=== PATIENT | female | born 1960 | race Caucasian/White ===

== ENCOUNTER 2018-11-04 21:19 | Emergency (ER) | payer OTHER ==
[~2018-11-04] VITALS: Ht 177.8 cm; Wt 57.6 kg
[2018-11-04] MEDS ORDERED: diphenhdrAMINE HCL 50 MG/1 ML VL ONE (21:27)
[2018-11-04] MEDS ORDERED: methylPREDNISolone SOD SUCC 125 MG/2 ML VL ONE (21:27)
[2018-11-04] MEDS ORDERED: methylPREDNISolone SOD SUCC 125 MG/2 ML VL IV ONE (21:30)
[2018-11-04] MEDS ORDERED: IPRATROPIUM BROM 0.5 MG/2.5ML INH SOL NEB ONE (21:30)
[2018-11-04] MEDS ORDERED: diphenhdrAMINE HCL 50 MG/1 ML VL IV ONE (21:30)
[2018-11-04] MEDS ORDERED: ALBUTEROL SULF 2.5 MG/0.5ML(0.5%) NEB SOLN NEB ONE (21:30)
[2018-11-04 22:20] LABS: Basophils # (auto) 0.1 uL; Basophils % (auto) 1.3 % (0.0-2.0); Eosinophils # (auto) 0.3 uL; Eosinophils % (auto) 3.9 % (0.0-7.0); Hematocrit 41.4 % (36.0-46.0); Lymphocytes # (auto) 3.2 uL; Lymphocytes % (auto) 36.9 % (10.0-50.0); Mean Corpuscular Hemoglobin 32.4 pg (28.0-32.0); Mean Corpuscular Hgb Conc. 33.8 g/dL (32.0-36.0); Mean Corpuscular Volume 96.1 fL (80.0-100.0); Monocytes # (auto) 0.8 uL; Monocytes % (auto) 9.8 % (0.0-12.0); Neutrophils # (auto) 4.2 uL; Neutrophils % (auto) 48.1 % (37.0-80.0); Nucleated Red Blood Cells % 0.1 %; Platelet Count (auto) 247 10^3/uL (140-450); Red Blood Cells 4.31 10^6/uL (4.0-5.20); Red Cell Distribution Width 13.8 % (11.8-14.3); White Blood Cell 8.7 10^3/uL (4.4-10.8)
[2018-11-04 22:41] LABS: Albumin 3.3 g/dL (3.4-5.0); Anion Gap 10 (5-15); Blood Urea Nitrogen 19 mg/dL (7-18); Carbon Dioxide 21 mmol/L (21-32); Chloride 107 mmol/L (98-107); Glucose 110 mg/dL (74-106); Potassium 3.9 mmol/L (3.5-5.1); Sodium 138 mmol/L (136-145)
[2018-11-04 22:46] LABS: Alkaline Phosphatase 84 U/L (45-117); Aspartate Aminotransferase 26 U/L (15-37); BUN/Creatinine Ratio 27.5; GFR African American 112 mL/min; GFR Non-African American 93 mL/min
[2018-11-04 22:47] LABS: Alanine Aminotransferase 37 U/L (13-56); Bilirubin, Total 0.2 mg/dL (0.2-1.0); Total Protein 6.4 g/dL (6.4-8.2)
[2018-11-04 23:30] VITALS: BP 120/88
== END 2018-11-04 23:46 | disposition home or self-care (01) ==
LOC: ER 21:19
DX: T78.40XA Allergy, unspecified, initial encounter (principal); L29.9 Pruritus, unspecified; Z88.6 Allergy status to analgesic agent; X58.XXXA Exposure to other specified factors, initial encounter
CPT/HCPCS: 36415; 80053; 84484; 85025; 94640; 96374; 96375; 99283; J1200; J2930; J7611; J7644

== ENCOUNTER 2019-01-20 15:51 | Inpatient (IN) | payer OTHER ==
[~2019-01-20] VITALS: Ht 172.7 cm; Wt 60.0 kg
[2019-01-20] MEDS ORDERED: ALBUTEROL SULF 2.5 MG/0.5ML(0.5%) NEB SOLN NEB ONE ×2 (17:00→17:15)
[2019-01-20] MEDS ORDERED: IPRATROPIUM BROM 0.5 MG/2.5ML INH SOL NEB ONE ×2 (17:00→17:15)
[2019-01-20] MEDS ORDERED: methylPREDNISolone SOD SUCC 125 MG/2 ML VL ONE (17:04)
[2019-01-20] MEDS ORDERED: methylPREDNISolone SOD SUCC 125 MG/2 ML VL IV ONE (17:15)
[2019-01-20] MEDS ORDERED: cefTRIAXone 1GM/50ML D5W 50 ML IV ONE (17:15)
[2019-01-20 17:30] LABS: Basophils # (auto) 0 uL; Basophils % (auto) 0.5 % (0.0-2.0); Eosinophils # (auto) 0 uL; Eosinophils % (auto) 0.2 % (0.0-7.0); Hemoglobin 13.1 g/dL (12.2-16.2); Lymphocytes # (auto) 0.4 uL; Lymphocytes % (auto) 8.8 % (10.0-50.0); Mean Corpuscular Hemoglobin 31.6 pg (28.0-32.0); Mean Corpuscular Hgb Conc. 33.6 g/dL (32.0-36.0); Mean Corpuscular Volume 94.1 fL (80.0-100.0); Monocytes # (auto) 0.5 uL; Neutrophils # (auto) 3.2 uL; Neutrophils % (auto) 77.5 % (37.0-80.0); Nucleated Red Blood Cells % 0.5 %; Platelet Count (auto) 195 10^3/uL (140-450); Red Blood Cells 4.14 10^6/uL (4.0-5.20); Red Cell Distribution Width 13.7 % (11.8-14.3); White Blood Cell 4.1 10^3/uL (4.4-10.8)
[2019-01-20 17:39] LABS: Alanine Aminotransferase 61 U/L (13-56); Albumin 3.5 g/dL (3.4-5.0); Anion Gap 8 (5-15); Calcium 8.7 mg/dL (8.5-10.1); Carbon Dioxide 24 mmol/L (21-32); Chloride 100 mmol/L (98-107); Glucose 107 mg/dL (74-106); Potassium 3.5 mmol/L (3.5-5.1); Sodium 132 mmol/L (136-145)
[2019-01-20 17:42] LABS: Alkaline Phosphatase 82 U/L (45-117); Aspartate Aminotransferase 43 U/L (15-37); BUN/Creatinine Ratio 16.4; Bilirubin, Total 0.3 mg/dL (0.2-1.0); Blood Urea Nitrogen 11 mg/dL (7-18); GFR African American 115 mL/min; GFR Non-African American 95 mL/min; Total Protein 7.1 g/dL (6.4-8.2)
[2019-01-20 19:35] LABS: Lactic Acid w/Reflex 3.2 mmol/L (0.4-2.0)
[2019-01-20] MEDS ORDERED: ONDANSETRON HCL 4 MG/2 ML VIAL IV PRN (21:15)
[2019-01-20] MEDS ORDERED: NITROGLYCERIN 0.4 MG SL TAB SL PRN (21:15)
[2019-01-20] MEDS ORDERED: SODIUM CHLORIDE 0.9% 1,000 ML IV ONE (21:15)
[2019-01-20] MEDS ORDERED: MORPHINE SULF INJ 2 MG/ML SYRINGE 1ML IV PRN (21:15)
[2019-01-20] MEDS ORDERED: HYDROcodone-ACET 5/325MG TAB PO PRN (21:15)
[2019-01-20] MEDS ORDERED: cloNIDine HCL 0.1 MG TAB PO PRN (21:15)
[2019-01-20] MEDS ORDERED: LEVOFLOXACIN 500MG 100 ML IV ONE (21:15)
[2019-01-20 22:00] VITALS: BP 160/89
[2019-01-20] MEDS: FAMOTIDINE 20 MG TAB PO SCH (22:00)
[2019-01-20] MEDS: methylPREDNISolone SOD SUCC 40 MG/ML VL IV SCH (22:00)
[2019-01-20 22:50] VITALS: BP 148/85
[2019-01-20] MEDS: SODIUM CHLORIDE 0.9% 1,000 ML IV SCH (22:50)
--- NOTE | 2019-01-20 22:50 | NUR ---
Telemetry admit from ELENA RUBY admitted to Telemetry unit. Patient oriented to ELO DOWLING, RN primary RN, unit, room, bed, and unit policies regarding patient care and visiting hours. Patient now on continuous telemetry monitoring, tele box # [id number] and telemetry reading on arrival to unit is SR 92. Patient placed on bedside oxygen, weighed by bedscale and encouraged to call if they need something. All questions and concerns addressed, patient verbalized understanding.Bed locked and in lowest position, call light within reach. Note:
[2019-01-20 23:20] VITALS: BP 157/91
[2019-01-20] MEDS: IPRATROPIUM BROM 0.5 MG/2.5ML INH SOL NEB PRN (23:27)
[2019-01-20] MEDS: ALBUTEROL SULF 2.5 MG/0.5ML(0.5%) NEB SOLN NEB PRN (23:28)
[2019-01-21 05:00] VITALS: BP 141/94
--- NOTE | 2019-01-21 06:24 | NUR ---
PAGED RT Patient feel sob, would like breathing Tx
[2019-01-21] MEDS: ACETAMINOPHEN 325 MG TAB PO PRN ×3 (06:31→21:52)
--- NOTE | 2019-01-21 06:38 | NUR ---
UA SAMPLE SENT TO LAB
[2019-01-21 07:11] LABS: Basophils # (auto) 0 uL; Basophils % (auto) 0.4 % (0.0-2.0); Eosinophils # (auto) 0 uL; Hematocrit 37.7 % (36.0-46.0); Hemoglobin 12.7 g/dL (12.2-16.2); Lymphocytes # (auto) 0.5 uL; Lymphocytes % (auto) 17.4 % (10.0-50.0); Mean Corpuscular Hemoglobin 31.9 pg (28.0-32.0); Mean Corpuscular Hgb Conc. 33.7 g/dL (32.0-36.0); Mean Corpuscular Volume 94.7 fL (80.0-100.0); Monocytes # (auto) 0.1 uL; Monocytes % (auto) 4.7 % (0.0-12.0); Neutrophils # (auto) 2.4 uL; Neutrophils % (auto) 77.5 % (37.0-80.0); Nucleated Red Blood Cells % 0.1 %; Platelet Count (auto) 186 10^3/uL (140-450); Red Blood Cells 3.99 10^6/uL (4.0-5.20); Red Cell Distribution Width 13.7 % (11.8-14.3); White Blood Cell 3.1 10^3/uL (4.4-10.8)
[2019-01-21 07:23] LABS: Urine Bacteria NONE SEEN /hpf (None Seen); Urine Blood 1+ /uL (Negative); Urine Specific Gravity 1.006 (1.001-1.035); Urine WBC <1 /hpf (0 - 5)
[2019-01-21 07:42] LABS: Albumin 3.1 g/dL (3.4-5.0); Calcium 8.5 mg/dL (8.5-10.1)
--- NOTE | 2019-01-21 07:43 | NUR ---
PAGED RT PT feels sob, requesting treatment
[2019-01-21] MEDS: ALBUTEROL SULF 2.5 MG/0.5ML(0.5%) NEB SOLN NEB PRN (07:46)
[2019-01-21] MEDS: IPRATROPIUM BROM 0.5 MG/2.5ML INH SOL NEB PRN (07:46)
[2019-01-21 07:48] LABS: Bilirubin, Total 0.2 mg/dL (0.2-1.0); Total Protein 6.6 g/dL (6.4-8.2)
--- NOTE | 2019-01-21 07:54 | NUR ---
OPENING SHIFT PATIENT IS AWAKE, ALERT, AND ORIENTED X4. PATIENT C/O OF SOB. RESPIRATORY IS AT BEDSIDE. DISCUSSED POC WITH PATIENT. PATIENT VERBALIZED UNDERSTANDING. NO S/S OF DISTRESS OR PAIN. WILL CONTINUE TO MONITOR Q1 HOUR AND PRN.
[2019-01-21] MEDS: FAMOTIDINE 20 MG TAB PO SCH ×2 (10:00→21:40)
[2019-01-21] MEDS: methylPREDNISolone SOD SUCC 40 MG/ML VL IV SCH (10:00)
[2019-01-21] MEDS: SODIUM CHLORIDE 0.9% 1,000 ML IV SCH (10:00)
[2019-01-21] MEDS ORDERED: BUDESONIDE (INHALATION) 0.5 MG/2 ML NEB NEB ONE (10:30)
[2019-01-21] MEDS ORDERED: LORazepam 0.5 MG TAB PO PRN (10:30)
--- NOTE | 2019-01-21 12:00 | NUR ---
FAMILY AT BEDSIDE. DISCUSSED POC WITH PATIENT AND FAMILY PATIENT AND FAMILY VERBALIZED UNDERSTANDING
--- NOTE | 2019-01-21 13:00 | NUR ---
DR. MAURI Stearns AT BEDSIDE DISCUSSED POC WITH PATIENT. PATIENT VERBALIZED UNDERSTANDING
[2019-01-21] MEDS: methylPREDNISolone SOD SUCC 125 MG/2 ML VL IV SCH ×2 (14:11→21:40)
[2019-01-21] MEDS: ALBUTEROL SULF 2.5 MG/0.5ML(0.5%) NEB SOLN NEB SCH ×2 (14:24→19:36)
[2019-01-21] MEDS: IPRATROPIUM BROM 0.5 MG/2.5ML INH SOL NEB SCH ×2 (14:25→19:35)
--- NOTE | 2019-01-21 18:47 | NUR ---
END OF SHIFT PATIENT RESTING IN BED. NO S/S OF DISTRESS, SOB, OR PAIN. RESPIRATIONS EVEN AND UNLABORED. BED IS IN LOWEST POSITION, SIDE RAILS UP X2, AND CALL LIGHT WITHIN REACH. WILL ENDORSE CARE TO NOC R.N.
[2019-01-21] MEDS: BUDESONIDE (INHALATION) 0.5 MG/2 ML NEB NEB SCH (19:40)
--- NOTE | 2019-01-21 19:40 | NUR ---
Respiratory note: AT BEDSIDE FOR MED KYE TX. PT TOLERATING WELL VIA MASK. BS ARE COURSE WHEEZES T/O, POX, 90% ON 3LNC, HR 90BPM. RT NAME AND PAGER ASSIGNMENT WRITTEN ON PTS ROOM BOARD. WILL CONTINUE TO MONITOR.
--- NOTE | 2019-01-21 20:03 | NUR ---
PAGED HOSPITALIST Patient would like something for her coughs, keeps getting frequent cough attacks, discomfort will continue to monitor pt.
[2019-01-21] MEDS: LEVOFLOXACIN 500MG 100 ML IV SCH (21:40)
[2019-01-21 22:00] VITALS: BP 144/82
[2019-01-21] MEDS ORDERED: guaiFENesin-DM 100/10mg/5ml SYR PO PRN (23:00)
--- NOTE | 2019-01-21 23:02 | NUR ---
HOSPITALIST TELEPHONE ORDER READ BACK David- DM 10 ml Q6 PRN will carry out md order and continue to monitor
[2019-01-22 05:07] VITALS: BP 132/90
[2019-01-22] MEDS: BUDESONIDE (INHALATION) 0.5 MG/2 ML NEB NEB SCH ×2 (05:38→19:05)
[2019-01-22] MEDS: ALBUTEROL SULF 2.5 MG/0.5ML(0.5%) NEB SOLN NEB SCH ×4 (05:38→19:04)
[2019-01-22] MEDS: IPRATROPIUM BROM 0.5 MG/2.5ML INH SOL NEB SCH ×4 (05:38→19:04)
[2019-01-22] MEDS: methylPREDNISolone SOD SUCC 125 MG/2 ML VL IV SCH ×2 (05:47→21:26)
--- NOTE | 2019-01-22 07:34 | NUR ---
CLOSING NOTE Report endorsed to day RN. informed RN in regards to pt requesting a linter operator evaluate her. Pt resting no s/sx;s of distress or sob noted
--- NOTE | 2019-01-22 07:40 | NUR ---
OPENING SHIFT PATIENT SLEEPING IN BED. RESPIRATIONS EVEN AND UNLABORED. NO S/S OF DISTRESS, SOB, OR PAIN. BED IS IN LOWEST POSITION, SIDE RAILS UP X2, AND CALL LIGHT WITHIN REACH. WILL CONTINUE TO MONITOR Q1 HOUR AND PRN
--- NOTE | 2019-01-22 08:39 | NUR ---
PATIENT ANXIETY PATIENT AND PATIENT'S VOICE FRUSTRATION. " WE WOULD LIKE A FULL CARDIAC WORK UP. SHE IS NOT GETTING BETTER. SHE IS GETTING WORSE. SHE IS PANICKING NOW BECAUSE SHE CAN'T BREATH AND HER HEART FEELS FUNNY." VS: BP 151/87 mmHG HR 84 BPM IN NORMAL SINUS RHYTHM SPO2 93% ON 2 L RR 17 PATIENT'S CAME OUT AND SPOKE TO DR. Rachael CRUM REGARDING PATIENT M.D. IS NOT ASSIGNED TO PATIENT PATIENT'S INSTRUCTED TO COME BACK AT 10:30 AND REVIEW CONCERNS WITH DR. DOTSON PATIENT'S VERBALIZED UNDERSTANDING.
--- NOTE | 2019-01-22 08:40 | NUR ---
CALLED [facility] REQUESTED HR TRENDS OF PATIENT [facility] TECH ESTER SAID PATIENT'S HR HAS STAYED BETWEEN 90-120 BPM THIS MORNING. ESTER STATES HEART RATE KEEPS FLUCTUATING. INSTRUCTED [facility] TECH TO CALL THIS R.N. IF PATIENT'S HR HAS ANY SIGNIFICANT CHANGES WILL ALERT M.D OF PATIENT'S TRENDS
--- NOTE | 2019-01-22 08:51 | NUR ---
RESPIRATORY TX PATIENT IS CURRENTLY RECEIVING MED NEB TREATMENT. NO S/S OF DISTRESS OR SOB OBSERVED
--- NOTE | 2019-01-22 08:53 | NUR ---
PATIENT REQUESTS HYDOXYZINE PATIENT STATES, " I AM FEELING ANXIOUS, I CAN NOT TAKE ANY XANAX OR MEDICATION LIKE IT BECAUSE IT GIVES ME HEART PALPITATIONS. I TAKE HYDROXYZINE 10 MG PILLS AT HOME AND CUT THEM IN HALF. " INFORMED PATIENT I WILL INFORM M.D. OF PATIENT REQUEST PATIENT VERBALIZED UNDERSTANDING
[2019-01-22 09:00] VITALS: BP 151/87
--- NOTE | 2019-01-22 10:50 | NUR ---
DR. MAURI Lovelace UPDATED ON PATIENT'S QUESTIONS AND CONCERNS M.Chantal. AT BEDSIDE WITH PATIENT DISCUSSING POC PATIENT VERBALIZED UNDERSTANDING NEW ORDERS PLACED
[2019-01-22] MEDS: FAMOTIDINE 20 MG TAB PO SCH ×2 (12:42→21:26)
[2019-01-22 13:44] VITALS: BP 146/90
--- NOTE | 2019-01-22 16:39 | NUR ---
ROUNDS PATIENT ASLEEP IN BED. NO S/S OF DISTRESS, SOB, OR PAIN. RESPIRATIONS EVEN AND UNLABORED. WILL CONTINUE TO MONITOR Q1 HOUR AND PRN.
[2019-01-22 17:24] VITALS: BP 137/69
[2019-01-22 20:00] VITALS: BP 170/93
[2019-01-22] MEDS: LEVOFLOXACIN 500MG 100 ML IV SCH (21:25)
[2019-01-22 22:00] VITALS: BP 170/93
[2019-01-23] VITALS (7 sets, daily range): BP systolic 128–151; BP diastolic 78–96
[2019-01-23] MEDS: ALBUTEROL SULF 2.5 MG/0.5ML(0.5%) NEB SOLN NEB SCH ×5 (00:07→19:16)
[2019-01-23] MEDS: IPRATROPIUM BROM 0.5 MG/2.5ML INH SOL NEB SCH ×5 (00:07→19:16)
[2019-01-23] MEDS: ALBUTEROL SULF 2.5 MG/0.5ML(0.5%) NEB SOLN NEB PRN ×2 (02:38→22:42)
[2019-01-23] MEDS: hydrOXYzine HCL 10 MG TAB PO PRN ×2 (03:17→23:03)
[2019-01-23] MEDS: methylPREDNISolone SOD SUCC 125 MG/2 ML VL IV SCH ×2 (09:19→21:05)
[2019-01-23] MEDS: FAMOTIDINE 20 MG TAB PO SCH ×2 (09:19→21:05)
[2019-01-23] MEDS: BUDESONIDE (INHALATION) 0.5 MG/2 ML NEB NEB SCH ×2 (10:42→19:16)
[2019-01-23] MEDS: LEVOFLOXACIN 500MG 100 ML IV SCH (21:05)
[2019-01-24] MEDS: ALBUTEROL SULF 2.5 MG/0.5ML(0.5%) NEB SOLN NEB SCH ×4 (02:40→14:52)
[2019-01-24] MEDS: ALBUTEROL SULF 2.5 MG/0.5ML(0.5%) NEB SOLN NEB PRN (02:48)
[2019-01-24 03:25] VITALS: BP 141/78
[2019-01-24 05:00] VITALS: BP 140/87
[2019-01-24] MEDS: IPRATROPIUM BROM 0.5 MG/2.5ML INH SOL NEB SCH ×3 (06:48→14:52)
[2019-01-24] MEDS: BUDESONIDE (INHALATION) 0.5 MG/2 ML NEB NEB SCH (06:48)
--- NOTE | 2019-01-24 07:25 | NUR ---
Opening Shift Note Received report from Corbin WHITAKER. Assumed care of patient, awake and alert. No S/S of distress/SOB or pain. Wants to go home. Instructed on POC and to call for assist PRN, will continue to monitor for changes Q1hr and PRN.
[2019-01-24 08:00] VITALS: BP 143/86
[2019-01-24 08:44] VITALS: BP 143/86
[2019-01-24] MEDS: FAMOTIDINE 20 MG TAB PO SCH (09:11)
[2019-01-24] MEDS: methylPREDNISolone SOD SUCC 125 MG/2 ML VL IV SCH (09:11)
--- NOTE | 2019-01-24 11:10 | NUR ---
Dr. Saenz at bedside.
--- NOTE | 2019-01-24 11:50 | NUR ---
PATIENT'S OXYGEN ON ROOM AIR IS 86%. RECEIVED VERBAL ORDER FROM DR DOTSON TO GET ABG WITH CO-OX STAT IF QUALIFIES FOR HOME 02.
[2019-01-24 11:58] VITALS: BP 146/85
--- NOTE | 2019-01-24 13:00 | NUR ---
BRYANT Angel TO FF UP THE STAT ABG W/ CO-OX ORDERED.
--- NOTE | 2019-01-24 13:15 | NUR ---
Stanley CALLED BACK, SAID WHEN SHE CHECKED THE O2 ON ROOM AIR IT WAS 96%. INFORMING THAT THERE IS A ROUTINE ORDER AND WHY ORDERED STAT. EXPLAINED TO HER THAT DR. DOTSON ORDERED A STAT ORDER DUE TO PATIENT'S ROOM AIR OXYGEN WHEN SHE WAS OFF OXYGEN FOR 1 HOUR EARLIER, IT WAS JUST 85-86%. PATIENT HAS A DISCHARGE ORDER TODAY AND TRYING TO HAVE A PATIENT BE ON SAFE DISCHARGE. Stanley SAID SHE WILL GET THE ABG WHEN SHE "HAS TIME".
--- NOTE | 2019-01-24 14:04 | NUR ---
PATIEN'S PO2 IS 55.5,PATIENT IS NOT QUALIFIED FOR HOME OXYGEN. PATIENT MADE AWARE AND VERBALIZED UNDERSTANDING.
[2019-01-24 14:25] VITALS: BP 143/86
--- NOTE | 2019-01-24 15:24 | NUR ---
Discharge instructions given as ordered. Encourage to follow up with PMD as instructed. All questions and concerns addressed. Patient verbalized understanding. IV removed with catheter intact, pressure dressing applied. Telemetry unit returned to [facility]. Patient taken to vehicle via wheelchair with all personal belongings, accompanied by staff and family member. No distress noted at time of departure.
== END 2019-01-24 15:25 | disposition home or self-care (01) | DRG 193 ==
LOC: ER 15:51 → TELE-CENTR 21:25
PROVIDERS: ADMIT Nurse Practitioner; ATTEND Internal Medicine
DX: J18.9 Pneumonia, unspecified organism (principal); J96.00 Acute respiratory failure, unspecified whether with hypoxia or hypercapnia; J44.1 Chronic obstructive pulmonary disease with (acute) exacerbation; J44.0 Chronic obstructive pulmonary disease with (acute) lower respiratory infection; I31.1 Chronic constrictive pericarditis; I10 Essential (primary) hypertension; J20.9 Acute bronchitis, unspecified; F17.210 Nicotine dependence, cigarettes, uncomplicated; Z71.6 Tobacco abuse counseling
CPT/HCPCS: 36415; 36600; 71046; 72040; 80053; 81001; 82805; 83605; 83735; 83880; 84484; 85025; 87040; 93005; 93306; 94640; 94644; 94761; 96374; 96375; G0378; J0696; J1956

== ENCOUNTER → 2020-10-09 | Outpatient (CLI) | payer OTHER | END | disposition home or self-care (01) | LOC: Rad HDHVI 09:11 | PROVIDERS: ATTEND Internal Medicine Cardiovascular Disease | DX: J44.9 Chronic obstructive pulmonary disease, unspecified (principal); I10 Essential (primary) hypertension | CPT/HCPCS: 93306 ==

== ENCOUNTER → 2020-10-14 | Outpatient (CLI) | payer OTHER ==
[~2020-10-14] VITALS: Ht 177.8 cm; Wt 58.5 kg
[~2020-10-14] MED LIST: ADENOSINE 49 MG in GIVE UN-DILUTED 0 ML IV ONE; ADENOSINE 90 MG/30 ML INJ IV ONE; ALBUTEROL SULF 2.5 MG/0.5ML(0.5%) NEB SOLN NEB ONE; ALBUTEROL SULF 2.5 MG/0.5ML(0.5%) NEB SOLN ONE
== END | disposition home or self-care (01) ==
LOC: Rad HDHVI 08:16
PROVIDERS: ATTEND Internal Medicine Cardiovascular Disease
DX: Z01.810 Encounter for preprocedural cardiovascular examination (principal); I10 Essential (primary) hypertension; E78.00 Pure hypercholesterolemia, unspecified; F17.200 Nicotine dependence, unspecified, uncomplicated
CPT/HCPCS: 78452; 93005; 94640; 96374; 96375; A9500; J0153

== ENCOUNTER → 2021-03-13 | Outpatient (CLI) | payer OTHER ==
[2021-03-13 08:35] LABS: Basophils # (auto) 0 10 ^3/uL (0-0.2); Basophils % (auto) 0.5 % (0.0-2.0); Eosinophils # (auto) 0 10 ^3/uL (0-0.8); Eosinophils % (auto) 0.3 % (0.0-7.0); Hematocrit 42.9 % (36.0-46.0); Hemoglobin 14.5 g/dL (12.2-16.2); Lymphocytes # (auto) 1.9 10 ^3/uL (0.4-5.4); Lymphocytes % (auto) 21.1 % (10.0-50.0); Mean Corpuscular Hemoglobin 31.4 pg (28.0-32.0); Mean Corpuscular Hgb Conc. 33.7 g/dL (32.0-36.0); Mean Corpuscular Volume 93.1 fL (80.0-100.0); Monocytes # (auto) 0.6 10 ^3/uL (0-1.3); Monocytes % (auto) 6.3 % (0.0-12.0); Neutrophils # (auto) 6.3 10 ^3/uL (1.6-8.6); Neutrophils % (auto) 71.8 % (37.0-80.0); Platelet Count (auto) 295 10^3/uL (140-450); Red Blood Cells 4.61 10^6/uL (4.0-5.20); Red Cell Distribution Width 14.3 % (11.8-14.3); White Blood Cell 8.8 10^3/uL (4.4-10.8)
[2021-03-13 08:41] LABS: Urine Bacteria NONE SEEN /hpf (None Seen); Urine Blood Negative /uL (Negative); Urine Specific Gravity 1.011 (1.001-1.035); Urine WBC 1 /hpf (0 - 5)
[2021-03-13 09:02] LABS: Calcium 8.6 mg/dL (8.5-10.1); Potassium 3.9 mmol/L (3.5-5.1)
[2021-03-13 09:12] LABS: Albumin 3.5 g/dL (3.4-5.0); BUN/Creatinine Ratio 14.7; Bilirubin, Total 0.4 mg/dL (0.2-1.0); Total Protein 6.9 g/dL (6.4-8.2)
== END | disposition home or self-care (01) ==
LOC: LAB 08:05
PROVIDERS: ATTEND Internal Medicine
DX: Z12.11 Encounter for screening for malignant neoplasm of colon (principal); I10 Essential (primary) hypertension; J44.9 Chronic obstructive pulmonary disease, unspecified
CPT/HCPCS: 36415; 80053; 80061; 81001; 83036; 84443; 85025

== ENCOUNTER → 2021-03-19 | Outpatient (CLI) | payer OTHER | END | disposition home or self-care (01) | LOC: LAB 10:37 | PROVIDERS: ATTEND Internal Medicine | DX: J44.9 Chronic obstructive pulmonary disease, unspecified (principal); I10 Essential (primary) hypertension; Z12.11 Encounter for screening for malignant neoplasm of colon | CPT/HCPCS: 82270 ==

== ENCOUNTER → 2022-03-23 | Outpatient (CLI) | payer OTHER ==
[2022-03-23 14:21] LABS: Urine Bacteria NONE SEEN /hpf (None Seen); Urine Blood Negative /uL (Negative); Urine Mucus FEW (None Seen); Urine Specific Gravity 1.012 (1.001-1.035); Urine WBC 1 /hpf (0 - 5)
== END | disposition home or self-care (01) ==
LOC: LAB 13:50
PROVIDERS: ATTEND Internal Medicine
DX: Z12.11 Encounter for screening for malignant neoplasm of colon (principal); R31.29 Other microscopic hematuria
CPT/HCPCS: 81001

== ENCOUNTER → 2022-05-19 | Outpatient (CLI) | payer OTHER ==
[2022-05-19 14:48] LABS: Basophils # (auto) 0.1 10 ^3/uL (0-0.2); Basophils % (auto) 1.4 % (0.0-2.0); Eosinophils # (auto) 0.4 10 ^3/uL (0-0.8); Eosinophils % (auto) 6.5 % (0.0-7.0); Hematocrit 42.5 % (36.0-46.0); Lymphocytes # (auto) 2.1 10 ^3/uL (0.4-5.4); Lymphocytes % (auto) 39.5 % (10.0-50.0); Mean Corpuscular Hemoglobin 30.6 pg (28.0-32.0); Mean Corpuscular Hgb Conc. 32.9 g/dL (32.0-36.0); Mean Corpuscular Volume 92.9 fL (80.0-100.0); Monocytes # (auto) 0.6 10 ^3/uL (0-1.3); Monocytes % (auto) 10.4 % (0.0-12.0); Neutrophils # (auto) 2.3 10 ^3/uL (1.6-8.6); Neutrophils % (auto) 42.2 % (37.0-80.0); Nucleated Red Blood Cells % 0.1 %; Red Blood Cells 4.57 10^6/uL (4.0-5.20); Red Cell Distribution Width 13.8 % (11.8-14.3); White Blood Cell 5.4 10^3/uL (4.4-10.8)
[2022-05-19 14:53] LABS: Urine Bacteria FEW /hpf (None Seen); Urine Blood Negative /uL (Negative); Urine Specific Gravity 1.006 (1.001-1.035); Urine WBC <1 /hpf (0 - 5)
[2022-05-19 15:24] LABS: Albumin 3.7 g/dL (3.4-5.0); BUN/Creatinine Ratio 15.4; Calcium 8.9 mg/dL (8.5-10.1); Potassium 4.1 mmol/L (3.5-5.1)
[2022-05-19 15:26] LABS: Bilirubin, Total 0.5 mg/dL (0.2-1.0); Total Protein 6.8 g/dL (6.4-8.2)
== END | disposition home or self-care (01) ==
LOC: LAB 14:09
DX: L60.1 Onycholysis (principal); B35.1 Tinea unguium; Z79.899 Other long term (current) drug therapy
CPT/HCPCS: 36415; 80053; 81001; 85025

== ENCOUNTER → 2022-10-12 | Outpatient (CLI) | payer OTHER ==
[2022-10-12 13:34] LABS: Cholesterol 213 mg/dL (< 200)
[2022-10-12 13:37] LABS: HDL Cholesterol 96 mg/dL (40-59); LDL Cholesterol 123 mg/dL (< 100); Triglycerides 46 mg/dL (< 150)
== END | disposition home or self-care (01) ==
LOC: LAB 13:00
PROVIDERS: ATTEND Internal Medicine
DX: E78.5 Hyperlipidemia, unspecified (principal)
CPT/HCPCS: 36415; 80061

== ENCOUNTER → 2023-01-13 | Outpatient (CLI) | payer OTHER ==
[2023-01-13 09:04] LABS: Basophils # (auto) 0.1 10 ^3/uL (0-0.2); Basophils % (auto) 0.8 % (0.0-2.0); Eosinophils # (auto) 0.5 10 ^3/uL (0-0.8); Eosinophils % (auto) 6.8 % (0.0-7.0); Hematocrit 44.1 % (36.0-46.0); Lymphocytes # (auto) 2.8 10 ^3/uL (0.4-5.4); Lymphocytes % (auto) 36.4 % (10.0-50.0); Mean Corpuscular Hemoglobin 31.7 pg (28.0-32.0); Mean Corpuscular Hgb Conc. 33.9 g/dL (32.0-36.0); Mean Corpuscular Volume 93.4 fL (80.0-100.0); Monocytes # (auto) 0.8 10 ^3/uL (0-1.3); Monocytes % (auto) 11.1 % (0.0-12.0); Neutrophils # (auto) 3.4 10 ^3/uL (1.6-8.6); Neutrophils % (auto) 44.9 % (37.0-80.0); Nucleated Red Blood Cells % 0.1 %; Red Blood Cells 4.72 10^6/uL (4.0-5.20); Red Cell Distribution Width 13.5 % (11.8-14.3); White Blood Cell 7.6 10^3/uL (4.4-10.8)
[2023-01-13 11:26] LABS: Cholesterol 228 mg/dL (< 200); Triglycerides 69 mg/dL (< 150)
[2023-01-13 11:27] LABS: HDL Cholesterol 112 mg/dL (40-59); LDL Cholesterol 110 mg/dL (< 100)
== END | disposition home or self-care (01) ==
LOC: LAB 08:50
PROVIDERS: ATTEND Internal Medicine
DX: E78.5 Hyperlipidemia, unspecified (principal)
CPT/HCPCS: 36415; 80061; 85025

== ENCOUNTER → 2023-06-29 | Outpatient (CLI) | payer OTHER | END | disposition home or self-care (01) | LOC: LAB 10:15 | PROVIDERS: ATTEND Internal Medicine | DX: E78.5 Hyperlipidemia, unspecified (principal); J44.9 Chronic obstructive pulmonary disease, unspecified | CPT/HCPCS: 82270 ==

== ENCOUNTER → 2023-10-03 | Outpatient (CLI) | payer OTHER ==
[2023-10-03 09:45] LABS: Basophils # (auto) 0 10 ^3/uL (0-0.2); Basophils % (auto) 0.9 % (0.0-2.0); Eosinophils # (auto) 0 10 ^3/uL (0-0.8); Eosinophils % (auto) 1.2 % (0.0-7.0); Hematocrit 43.5 % (36.0-46.0); Hemoglobin 14.9 g/dL (12.2-16.2); Lymphocytes # (auto) 1.8 10 ^3/uL (0.4-5.4); Mean Corpuscular Hemoglobin 32.1 pg (28.0-32.0); Mean Corpuscular Hgb Conc. 34.2 g/dL (32.0-36.0); Mean Corpuscular Volume 93.9 fL (80.0-100.0); Monocytes # (auto) 0.6 10 ^3/uL (0-1.3); Monocytes % (auto) 15.1 % (0.0-12.0); Neutrophils # (auto) 1.6 10 ^3/uL (1.6-8.6); Neutrophils % (auto) 38.8 % (37.0-80.0); Nucleated Red Blood Cells % 0.2 %; Red Blood Cells 4.64 10^6/uL (4.0-5.20); Red Cell Distribution Width 13.6 % (11.8-14.3); White Blood Cell 4.1 10^3/uL (4.4-10.8)
[2023-10-03 10:23] LABS: Alanine Aminotransferase 24 U/L (7-40); Albumin 4.4 g/dL (3.2-4.8); Alkaline Phosphatase 57 U/L (46-116); Anion Gap 7 (5-15); Aspartate Aminotransferase 22 U/L (13-40); BUN/Creatinine Ratio 10.4 (10.0-20.0); Blood Urea Nitrogen 8 mg/dL (9-23); Calcium 9.5 mg/dL (8.5-10.1); Carbon Dioxide 27 mmol/L (20-30); Chloride 102 mmol/L (98-107); Glucose 102 mg/dL (74-106); Potassium 3.9 mmol/L (3.5-5.1); Sodium 136 mmol/L (136-145)
[2023-10-03 10:24] LABS: Bilirubin, Total 0.4 mg/dL (0.2-1.0)
== END | disposition home or self-care (01) ==
LOC: LAB 09:20
PROVIDERS: ATTEND Specialist
DX: J20.9 Acute bronchitis, unspecified (principal); J42 Unspecified chronic bronchitis; J43.9 Emphysema, unspecified; R05.3 Chronic cough
CPT/HCPCS: 36415; 80053; 85025; 87070; 87205

== ENCOUNTER → 2024-01-15 | Outpatient (CLI) | payer OTHER ==
[2024-01-15 10:43] LABS: Alanine Aminotransferase 19 U/L (7-40); Alkaline Phosphatase 58 U/L (46-116); Anion Gap 4 (5-15); BUN/Creatinine Ratio 15.4 (10.0-20.0); Blood Urea Nitrogen 10 mg/dL (9-23); Calcium 9.5 mg/dL (8.5-10.1); Carbon Dioxide 30 mmol/L (20-30); Chloride 105 mmol/L (98-107); Glucose 90 mg/dL (74-106); LDL Cholesterol 115 mg/dL (< 100); Potassium 4.3 mmol/L (3.5-5.1); Sodium 139 mmol/L (136-145); Triglycerides 75 mg/dL (< 150)
[2024-01-15 10:44] LABS: Albumin 4.3 g/dL (3.2-4.8); Aspartate Aminotransferase 14 U/L (13-40); Cholesterol 214 mg/dL (< 200)
[2024-01-15 10:45] LABS: Bilirubin, Total 0.6 mg/dL (0.2-1.0); HDL Cholesterol 87 mg/dL (40-59); Total Protein 6.5 g/dL (5.7-8.2)
== END | disposition home or self-care (01) ==
LOC: LAB 09:22
PROVIDERS: ATTEND Internal Medicine
DX: J44.1 Chronic obstructive pulmonary disease with (acute) exacerbation (principal); E78.5 Hyperlipidemia, unspecified
CPT/HCPCS: 36415; 80053; 80061

== ENCOUNTER 2024-04-30 12:30 | Emergency (ER) | payer MEDICARE ==
[~2024-04-30] VITALS: Ht 175.3 cm; Wt 61.4 kg
[2024-04-30 13:15] VITALS: O2SAT 94
[2024-04-30] MEDS: SODIUM CHLORIDE 0.9% 1,000 ML IV ONE (13:45)
[2024-04-30 14:32] LABS: Basophils # (auto) 0 10 ^3/uL (0-0.2); Basophils % (auto) 0.1 % (0.0-2.0); Eosinophils # (auto) 0 10 ^3/uL (0-0.8); Eosinophils % (auto) 0.5 % (0.0-7.0); Hemoglobin 15.9 g/dL (12.2-16.2); Lymphocytes # (auto) 0.4 10 ^3/uL (0.4-5.4); Mean Corpuscular Hemoglobin 32.3 pg (28.0-32.0); Mean Corpuscular Hgb Conc. 34.5 g/dL (32.0-36.0); Mean Corpuscular Volume 93.6 fL (80.0-100.0); Monocytes # (auto) 0.2 10 ^3/uL (0-1.3); Monocytes % (auto) 2.6 % (0.0-12.0); Neutrophils # (auto) 6.1 10 ^3/uL (1.6-8.6); Neutrophils % (auto) 90.8 % (37.0-80.0); Nucleated Red Blood Cells % 0.1 %; Red Blood Cells 4.91 10^6/uL (4.0-5.20); Red Cell Distribution Width 13.8 % (11.8-14.3); White Blood Cell 6.7 10^3/uL (4.4-10.8)
[2024-04-30] MEDS: ONDANSETRON HCL 4 MG/2 ML VIAL IV ONE (14:43)
[2024-04-30] MEDS: KETOROLAC TROMETH 30 MG/ML 1ML VIAL IV ONE (14:43)
[2024-04-30 14:54] LABS: Alanine Aminotransferase 29 U/L (7-40); Albumin 4.4 g/dL (3.2-4.8); Alkaline Phosphatase 75 U/L (46-116); Anion Gap 6 (5-15); Aspartate Aminotransferase 19 U/L (13-40); BUN/Creatinine Ratio 18.5 (10.0-20.0); Bilirubin, Total 0.7 mg/dL (0.2-1.0); Blood Urea Nitrogen 15 mg/dL (9-23); Carbon Dioxide 27 mmol/L (20-30); Chloride 104 mmol/L (98-107); Glucose 99 mg/dL (74-106); Lipase 36 U/L (12-53); Potassium 3.8 mmol/L (3.5-5.1); Sodium 137 mmol/L (136-145); Total Protein 6.8 g/dL (5.7-8.2)
[2024-04-30 16:49] LABS: Urine Blood Negative /uL (Negative); Urine Clarity Turbid (Clear); Urine Color Yellow (Yellow); Urine Protein, UAD TRACE (Negative); Urine Specific Gravity 1.019 (1.001-1.035); Urine Urobilinogen Normal (Negative)
[2024-04-30] MEDS ORDERED: PANT40TA2 PO (17:11)
[2024-04-30] MEDS ORDERED: ZOFR4T PO (17:11)
[2024-04-30 17:19] VITALS: BP 109/68; PULSE 90; RESP 18; TEMP 98.1; O2SAT 100
== END 2024-04-30 17:11 | disposition home or self-care (01) ==
LOC: EDBD 12:30 → ER 12:30
DX: K52.9 Noninfective gastroenteritis and colitis, unspecified (principal); K29.70 Gastritis, unspecified, without bleeding; K80.20 Calculus of gallbladder without cholecystitis without obstruction; J44.9 Chronic obstructive pulmonary disease, unspecified; F17.210 Nicotine dependence, cigarettes, uncomplicated; Z88.6 Allergy status to analgesic agent
CPT/HCPCS: 36415; 74176; 76705; 80053; 81003; 83690; 85025; 93005; 96361; 96374; 96375; 99285; J1885; J2405; J7030

== ENCOUNTER → 2024-08-02 | Outpatient (CLI) | payer MEDICARE, BC ==
[~2024-08-02] MED LIST changes: -ADENOSINE 49 MG in GIVE UN-DILUTED 0 ML IV ONE; -ADENOSINE 90 MG/30 ML INJ IV ONE; -ALBUTEROL SULF 2.5 MG/0.5ML(0.5%) NEB SOLN NEB ONE; -ALBUTEROL SULF 2.5 MG/0.5ML(0.5%) NEB SOLN ONE; +PANT40TA2 PO; +ZOFR4T PO
== END | disposition home or self-care (01) ==
LOC: LAB 10:17
PROVIDERS: ATTEND Internal Medicine
DX: J44.9 Chronic obstructive pulmonary disease, unspecified (principal); E78.5 Hyperlipidemia, unspecified; D72.819 Decreased white blood cell count, unspecified; Z79.899 Other long term (current) drug therapy
CPT/HCPCS: 36415; 82270; 82306; 82607; 84443

== ENCOUNTER → 2024-09-19 | Outpatient (CLI) | payer BC ==
[2024-09-19 12:48] LABS: Triglycerides 60 mg/dL (< 150)
[2024-09-19 12:49] LABS: LDL Cholesterol 132 mg/dL (< 100)
[2024-09-19 12:50] LABS: Cholesterol 233 mg/dL (< 200); HDL Cholesterol 89 mg/dL (40-59)
== END | disposition home or self-care (01) ==
LOC: LAB 11:27
PROVIDERS: ATTEND Internal Medicine
DX: I10 Essential (primary) hypertension (principal); E78.5 Hyperlipidemia, unspecified; Z79.899 Other long term (current) drug therapy
CPT/HCPCS: 36415; 80061; 83036

== ENCOUNTER → 2025-01-09 | Outpatient (CLI) | payer MEDICARE, OTHER | END | disposition home or self-care (01) | LOC: RT 08:37 | PROVIDERS: ATTEND Internal Medicine Pulmonary Disease | DX: J44.9 Chronic obstructive pulmonary disease, unspecified (principal); R06.00 Dyspnea, unspecified; F17.210 Nicotine dependence, cigarettes, uncomplicated | CPT/HCPCS: 94060; 94727; 94729 ==

== ENCOUNTER → 2025-02-18 | Outpatient (CLI) | payer MEDICARE, OTHER ==
--- NOTE | 2025-02-19 08:13 | ECG ---
[facility] Test Date: 2025-02-18 Test Time: 12:07:29 Pat Name: ELENA VILLA Department: Room: Gender: F Dress Fitter: VANNESSAJOEMattie : 1960 Requested By: SUNDEEP RILEY Order Number: [id number] Reading MD: Lew Martini Measurements Intervals [place] Rate: 60 P: 75 MI: 154 QRS: 81 QRSD: 82 T: 63 QT: 432 QTc: 432 Interpretive Statements Normal sinus rhythm with sinus arrhythmia Septal infarct , age undetermined Electronically Signed On 02-19-2025 20:35:21 PDT by Lew Martini Please click the below link to view image of tracing.
== END | disposition home or self-care (01) ==
LOC: XYW 16:12 → EDSTATUS 02-21 20:05
PROVIDERS: ATTEND Surgery
DX: Z01.810 Encounter for preprocedural cardiovascular examination (principal); I49.8 Other specified cardiac arrhythmias; R94.31 Abnormal electrocardiogram [ECG] [EKG]; K80.20 Calculus of gallbladder without cholecystitis without obstruction; J41.0 Simple chronic bronchitis; F32.5 Major depressive disorder, single episode, in full remission; F32.A Depression, unspecified; Z72.0 Tobacco use
CPT/HCPCS: 93005

== ENCOUNTER 2025-04-14 07:17 | Inpatient (IN) | payer MEDICARE, OTHER ==
[2025-04-11 11:50] LABS: Urine Bacteria None Seen /hpf (None Seen)
[2025-04-11 11:55] LABS: Basophils # (auto) 0 10 ^3/uL (0-0.2); Basophils % (auto) 0.7 % (0.0-2.0); Eosinophils # (auto) 0.3 10 ^3/uL (0-0.8); Eosinophils % (auto) 4.9 % (0.0-7.0); Hematocrit 44.9 % (36.0-46.0); Hemoglobin 15.4 g/dL (12.2-16.2); Lymphocytes # (auto) 2.4 10 ^3/uL (0.4-5.4); Lymphocytes % (auto) 36.3 % (10.0-50.0); Mean Corpuscular Hemoglobin 31.7 pg (28.0-32.0); Mean Corpuscular Hgb Conc. 34.4 g/dL (32.0-36.0); Mean Corpuscular Volume 92.1 fL (80.0-100.0); Monocytes # (auto) 0.7 10 ^3/uL (0-1.3); Monocytes % (auto) 10.2 % (0.0-12.0); Neutrophils # (auto) 3.2 10 ^3/uL (1.6-8.6); Neutrophils % (auto) 47.9 % (37.0-80.0); Nucleated Red Blood Cells % 0.1 %; Platelet Count (auto) 290 10^3/uL (140-450); Red Blood Cells 4.88 10^6/uL (4.0-5.20); White Blood Cell 6.6 10^3/uL (4.4-10.8)
[2025-04-11 12:14] LABS: INR 0.94 (0.9-1.15); Partial Thromboplastin Time 25.6 SEC (24.5-34.5)
[2025-04-11 12:28] LABS: Urine Blood Negative /uL (Negative); Urine Clarity Clear (Clear); Urine Color Light-Yellow (Yellow); Urine Mucus FEW (None Seen); Urine Protein, UAD Negative (Negative); Urine Specific Gravity 1.014 (1.001-1.035); Urine Squamous Epithelial Cell FEW /hpf (<5); Urine Urobilinogen Normal (Negative); Urine WBC < 1 /HPF (0-5)
[2025-04-11 13:18] LABS: Alanine Aminotransferase 23 U/L (7-40); Alkaline Phosphatase 90 U/L (46-116); Anion Gap 5 (5-15); Aspartate Aminotransferase 18 U/L (13-40); BUN/Creatinine Ratio 17.8 (10.0-20.0); Bilirubin, Total 0.7 mg/dL (0.2-1.0); Blood Urea Nitrogen 13 mg/dL (9-23); Calcium 10.8 mg/dL (8.7-10.4); Carbon Dioxide 30 mmol/L (20-31); Chloride 103 mmol/L (98-107); Glucose 83 mg/dL (74-106); Potassium 5.4 mmol/L (3.5-5.1); Sodium 138 mmol/L (136-145); Total Protein 7.1 g/dL (5.7-8.2)
[2025-04-11 13:19] LABS: Albumin 4.8 g/dL (3.2-4.8)
[~2025-04-14] VITALS: Ht 177.8 cm; Wt 63.0 kg
[2025-04-14] VITALS (7 sets, daily range): BP systolic 145–155; BP diastolic 76–89; PULSE 76–102; RESP 13–22; TEMP 97.6; O2SAT 80–100
[2025-04-14] MEDS: ceFAZolin 1GM/50ML 50 ML IV ONE ×2 (07:40→09:25)
[2025-04-14] MEDS: BUPIVACAINE HCL 0.25% P/F 10 ML VIAL ONE (08:57)
[2025-04-14] MEDS ORDERED: fentaNYL CITRATE 100 MCG/2 ML VL ONE (09:04)
[2025-04-14] MEDS ORDERED: HYDROmorphone HCL 2 MG/ML VL/or syr ONE ×2 (09:05→09:40)
[2025-04-14] MEDS: SUCCINYLCHOLINE CHLORIDE 20 MG/ML 10ML VIAL IV ONE (09:13)
[2025-04-14] MEDS ORDERED: DexAMETHasone SOD PHOS 10MG/1ML VIAL INJ ONE (09:36)
[2025-04-14] MEDS ORDERED: ONDANSETRON HCL 4 MG/2 ML VIAL ONE (09:36)
[2025-04-14] MEDS ORDERED: ROCURONIUM 10MG/ML 10ML VIAL IV ONE (09:37)
[2025-04-14] MEDS ORDERED: ePHEDrine SULFATE 50 MG/ML AMP ONE (09:47)
[2025-04-14] MEDS: BUPIVACAINE 0.5% P/F INJ 10 ML VIAL ONE (09:54)
[2025-04-14] MEDS: LIDOCAINE W/ EPINEPHRINE 1% 20ML VIAL ONE (09:55)
[2025-04-14] MEDS ORDERED: LABETALOL HCL 5 MG/ML ML 20ML VIAL IV ONE (09:57)
[2025-04-14] MEDS ORDERED: SUGAMMADEX 200mg/2ml Vial (100MG/ML) IV ONE (10:17)
[2025-04-14] MEDS: ALBUTEROL SULF 2.5 MG/0.5ML(0.5%) NEB SOLN NEB STA (10:45)
[2025-04-14] MEDS ORDERED: ACETAMINOPHEN IV 1000 MG/100ML (10MG/ML) IV PRN (10:45)
[2025-04-14] MEDS ORDERED: MEPERIDINE HCL (25 MG/ML) 1ML VIAL IV PRN (10:45)
[2025-04-14] MEDS ORDERED: MORPHINE SULFATE INJ 2 MG/ml SYRG IV PRN (11:00)
[2025-04-14] MEDS ORDERED: NITROGLYCERIN 0.4 MG SL TAB SL PRN (11:00)
[2025-04-14] MEDS ORDERED: IPRATROPIUM BROM 0.5 MG/2.5ML INH SOL NEB ONE (11:10)
[2025-04-14] MEDS ORDERED: IPRATROPIUM BROM 0.5 MG/2.5ML INH SOL NEB PRN ×2 (11:15→11:30)
--- NOTE | 2025-04-14 11:27 | DVHOP ---
DATE OF SURGERY: 04/14/2025 PREOPERATIVE DIAGNOSIS: Gallbladder polyps. POSTOPERATIVE DIAGNOSIS: Gallbladder polyps. SURGEON: Maximilian Rosado MD ALTERATIONS SUPERVISOR: Lenin Travis NP ANESTHESIA: General endotracheal. ANESTHESIOLOGIST: Dr. Leal PROCEDURES: * Laparoscopy. * Laparoscopic cholecystectomy. DESCRIPTION OF PROCEDURE: Under general endotracheal anesthesia with the patient's skin prepped and draped, a supraumbilical incision was made and Veress needle inserted by the hanging drop technique in order to establish pneumoperitoneum to 15 mmHg pressure by insufflation with carbon dioxide. With the abdomen fully distended, the needle was removed and replaced with a 5-mm trocar port through which the 0-degree viewing laparoscope was inserted. Under direct vision, additional ports inserted through the midline and the right anterior axillary line. A 5-mm port was inserted through the lateral site and a 10-mm port through the subxiphoid midline site. Instrumentation was then introduced. The liver was massively enlarged reaching from the right upper quadrant to the right lower quadrant of the abdomen, which made the operation quite difficult. The gallbladder was encountered, was distended, was grasped and aspirated of bile. Cystic duct and cystic artery were identified, circumferentially dissected, skeletonized, and traced into the hepatocystic triangle so as to minimize the potential for an inadvertent injury to the common bile duct. The cystic duct and cystic artery were divided between metallic clips close to the gallbladder, again attempting to avoid injury to the common bile duct. There appeared to be an accessory duct of Luschka at mid portion of the gallbladder, which was controlled also by hemoclips and divided. The gallbladder was then resected from its liver bed by electrocautery and traction. The fully mobilized gallbladder was placed into the specimen extraction bag, which was introduced through the subxiphoid 10-mm port site and the gallbladder was removed from the peritoneal cavity. The subhepatic space was irrigated. Irrigant was aspirated. There was a small amount of venous bleeding from the liver bed, which was controlled by electrocautery and application of hemostatic SNoW. The instrumentation was withdrawn and following assurance of complete hemostasis at the cholecystectomy site and the port sites, the pneumoperitoneum was evacuated and the wounds were closed using Monocryl sutures, Dermabond glue, and Steri-Strips. The patient remained hemodynamically stable throughout the procedure and left the operating room following an accurate needle and sponge counts. The patient's , Loco Gregg, was thoroughly informed at [phone]. MD KANNAN Broussard/YIMI/FREDO TID: [id number] RECEIPT: [id number]
[2025-04-14] MEDS: IPRATROPIUM BROM 0.5 MG/2.5ML INH SOL ONE (11:28)
[2025-04-14] MEDS: HYDROmorphone HCL 2 MG/ML VL/or syr IV PRN (11:47)
--- NOTE | 2025-04-14 12:19 | DVHHP2 ---
Review of Systems Allergies: Coded Allergies: Alprazolam (Verified Allergy, Unknown, 11/04/18) Medications Current Medications Medications Dose Ordered Sig/Piper Route Start Time Stop Time Status Last Admin Dose Admin Nitroglycerin 0.4 mg Q5MINP PRN SL 04/14/25 11:00 Morphine Sulfate 2 mg Q30M PRN IV 04/14/25 11:00 Ipratropium [place] 0.5 mg O PRN NEB 04/14/25 11:30 UNV Albuterol 2.5 mg Q4HWA [facility] 04/14/25 14:00 UNV Ipratropium [place] 0.5 mg Q4HWA [facility] 04/14/25 14:00 UNV Exam Vital Signs Vital Signs Date Time Temp Pulse Resp B/P (MAP) Pulse Ox O2 Delivery O2 Flow Rate FiO2 04/14/25 12:15 75 17 163/79 04/14/25 11:45 100 04/14/25 11:45 Nasal Cannula* 4 36 04/14/25 10:27 97.0 97.0 Labs/Xrays Labs Test 04/11/25 11:45 Range/Units White Blood Count 6.6 4.4-10.8 10^3/uL Red Blood Count 4.88 4.0-5.20 10^6/uL Hemoglobin 15.4 12.2-16.2 g/dL Hematocrit 44.9 36.0-46.0 % Mean Corpuscular Volume 92.1 80.0-100.0 fL Mean Corpuscular Hemoglobin 31.7 28.0-32.0 pg Mean Corpuscular Hemoglobin Concent 34.4 32.0-36.0 g/dL Red Cell Distribution Width 14.0 11.8-14.3 % Platelet Count 290 140-450 10^3/uL Mean Platelet Volume 7.6 6.9-10.8 fL Neutrophils (%) (Auto) 47.9 37.0-80.0 % Lymphocytes (%) (Auto) 36.3 10.0-50.0 % Monocytes (%) (Auto) 10.2 0.0-12.0 % Eosinophils (%) (Auto) 4.9 0.0-7.0 % Basophils (%) (Auto) 0.7 0.0-2.0 % Neutrophils # (Auto) 3.2 1.6-8.6 10 ^3/uL Lymphocytes # (Auto) 2.4 0.4-5.4 10 ^3/uL Monocytes # (Auto) 0.7 0-1.3 10 ^3/uL Eosinophils # (Auto) 0.3 0-0.8 10 ^3/uL Basophils # (Auto) 0 0-0.2 10 ^3/uL Nucleated Red Blood Cells 0.1 % Prothrombin Time 10.0 9.3-11.8 sec Prothrombin Time INR 0.94 0.9-1.15 Activated Partial Thromboplast Time 25.6 24.5-34.5 SEC Urine Color Light-yellow Yellow Urine Clarity Clear Clear Urine pH 8.0 5.0-9.0 Urine Specific [place] 1.014 1.001-1.035 Urine Protein Negative Negative Urine Ketones Negative Negative Urine Blood Negative Negative /uL Urine Nitrite Negative Negative Urine Bilirubin Negative Negative Urine Urobilinogen Normal Negative mg/dL Urine Leukocyte Esterase Negative Negative /uL Urine RBC 3 0 - 4 /hpf Urine Microscopic WBC < 1 0-5 /HPF Urine Squamous Epithelial Cells Few <5 /hpf Urine Bacteria None seen None Seen /hpf Urine Mucus Few None Seen Urine Glucose Normal Normal mg/dL Sodium Level 138 136-145 mmol/L Potassium Level 5.4 H 3.5-5.1 mmol/L Chloride Level 103 98-107 mmol/L Carbon Dioxide Level 30 20-31 mmol/L Anion Gap 5 5-15 Blood Urea Nitrogen 13 9-23 mg/dL Creatinine 0.73 0.550-1.02 mg/dL Glomerular Filtration Rate Calc 91 >90 mL/min BUN/Creatinine Ratio 17.8 10.0-20.0 Serum Glucose 83 74-106 mg/dL Calcium Level 10.8 H 8.7-10.4 mg/dL Total Bilirubin 0.7 0.2-1.0 mg/dL Aspartate Amino Transferase (AST) 18 13-40 U/L Alanine Aminotransferase (ALT) 23 7-40 U/L Alkaline Phosphatase 90 46-116 U/L Total Protein 7.1 5.7-8.2 g/dL Albumin 4.8 3.2-4.8 g/dL Assessment/Plan Assessment/Plan SEE DICTATED NOTE Plan discussed with: Patient My Orders Orders - IRIS DOTSON MD Procedure Category Date Status Time Admit ADMIT 04/14/25 Transmitted 10:47 Oxygen By Nasal RT 04/14/25 Transmitted Cannula 10:47 Nitroglycerin PHA 04/14/25 In Process Sublingual (Ntrostat 11:00 Morphine Sulfate PHA 04/14/25 In Process Injection 11:00 Stat Ekg For Chest YUSRA 04/14/25 In Process Pain 10:47 Notify Md Of Changes YUSRA 04/14/25 In Process From Base 10:47 Emergency Dysrhythmia YUSRA 04/14/25 In Process Protocol 10:47 Rhythm Strips Once YUSRA 04/14/25 In Process Every Shift 10:47 Clear Liq Diet DIET 04/14/25 Transmitted Lunch Albuterol Medneb PHA 04/14/25 Logged (Ventolin Medneb) 14:00 Ipratropium Medneb PHA 04/14/25 Logged (Atrovent Medneb) 14:00 Date of Service: Apr 14, 2025 Billing Provider: IRIS DOTSON MD Common Visit Codes: [id number] INP/OBS CARE (HIGH) Secondary Visit Codes: [id number] CHNG SMOKING >10MIN IRIS DOTSON MD Apr 14, 2025 12:19
--- NOTE | 2025-04-14 13:01 | DVHHP ---
ADMIT DATE: 04/14/2025 HISTORY OF PRESENT ILLNESS: The patient is a 65-year-old lady who underwent laparoscopic cholecystectomy for gallbladder polyps. The patient at this time denies any significant chest pain. No shortness of breath. No nausea or vomiting. REVIEW OF SYSTEMS: Review of rest of systems otherwise currently negative. PAST MEDICAL HISTORY: Significant for COPD and hypertension. MEDICATIONS: Include bronchodilators along with amlodipine. ALLERGIES: XANAX. SOCIAL HISTORY: Smokes 1 pack a day. Denies alcohol intake. Lives at home with family. FAMILY HISTORY: Negative. PHYSICAL EXAMINATION: GENERAL: The patient is awake and alert. VITAL SIGNS: Temperature of 97, pulse 77 per minute, blood pressure 156/83. SHEENT: Unremarkable. NECK: No JVD. No pedal edema. LUNGS: Diminished bilaterally. CARDIOVASCULAR: S1 and S2 regular. No murmurs. ABDOMEN: Soft. Bowel sounds are hypoactive. NEUROLOGIC: Nonfocal. MUSCULOSKELETAL: Normal. ASSESSMENT AND PLAN: * Chronic obstructive pulmonary disease for which the patient will be placed on bronchodilators and a chest x-ray will be obtained. * Acute respiratory failure for which she will be placed on bronchodilators. * Tobacco abuse for which she has been advised to quit. A nicotine patch has been placed. Time spent was 11 minutes. * Hypertension for which she will be placed on amlodipine. * Status post laparoscopic cholecystectomy for gallbladder polyps. She will be placed on a clear liquid diet along with IV fluids and pain medications. MD MUSA Jones/JOSE/KAROLYN TID: [id number] RECEIPT: [id number]
[2025-04-14] MEDS: ONDANSETRON HCL 4 MG/2 ML VIAL IV ONE (13:06)
[2025-04-14] MEDS: HYDROcodone-ACET 5/325MG TAB PO PRN (13:56)
[2025-04-14] MEDS: ALBUTEROL SULF 2.5 MG/0.5ML(0.5%) NEB SOLN NEB SCH (14:00)
[2025-04-14] MEDS: IPRATROPIUM BROM 0.5 MG/2.5ML INH SOL NEB SCH (14:00)
[2025-04-14] MEDS: D5W/SOD CHL 0.45%/KCL 20MEQ 1,000 ML IV SCH (15:46)
[2025-04-14] MEDS: MORPHINE SULFATE 4 MG/ML SYR/VIAL IV PRN (16:41)
[2025-04-14] MEDS: ONDANSETRON HCL 4 MG/2 ML VIAL IV PRN (18:49)
[2025-04-14] MEDS: hydrALAZINE HCL 20 MG/ML VL IV PRN (20:57)
[2025-04-15] VITALS (17 sets, daily range): BP systolic 112–154; BP diastolic 67–84; PULSE 75–106; RESP 16–20; TEMP 97.7–98.1; O2SAT 95–100
[2025-04-15 06:24] LABS: Basophils # (auto) 0 10 ^3/uL (0-0.2); Basophils % (auto) 0.4 % (0.0-2.0); Eosinophils # (auto) 0 10 ^3/uL (0-0.8); Hematocrit 41.4 % (36.0-46.0); Hemoglobin 14.1 g/dL (12.2-16.2); Lymphocytes # (auto) 1.3 10 ^3/uL (0.4-5.4); Lymphocytes % (auto) 10.4 % (10.0-50.0); Mean Corpuscular Hemoglobin 31.1 pg (28.0-32.0); Mean Corpuscular Hgb Conc. 34.2 g/dL (32.0-36.0); Mean Corpuscular Volume 91.1 fL (80.0-100.0); Monocytes # (auto) 1.4 10 ^3/uL (0-1.3); Monocytes % (auto) 10.7 % (0.0-12.0); Neutrophils % (auto) 78.5 % (37.0-80.0); Platelet Count (auto) 293 10^3/uL (140-450); Red Blood Cells 4.54 10^6/uL (4.0-5.20); Red Cell Distribution Width 13.6 % (11.8-14.3); White Blood Cell 12.8 10^3/uL (4.4-10.8)
[2025-04-15 06:35] LABS: Albumin 4.1 g/dL (3.2-4.8); Alkaline Phosphatase 75 U/L (46-116); Anion Gap 9 (5-15); BUN/Creatinine Ratio 15.3 (10.0-20.0); Blood Urea Nitrogen 9 mg/dL (9-23); Calcium 9.3 mg/dL (8.7-10.4); Carbon Dioxide 24 mmol/L (20-31); Chloride 101 mmol/L (98-107); Potassium 4.1 mmol/L (3.5-5.1); Total Protein 6.4 g/dL (5.7-8.2)
[2025-04-15 06:36] LABS: Bilirubin, Total 0.8 mg/dL (0.2-1.0)
[2025-04-15 06:44] LABS: Alanine Aminotransferase 77 U/L (7-40); Glucose 137 mg/dL (74-106); Sodium 134 mmol/L (136-145)
[2025-04-15 07:29] LABS: Aspartate Aminotransferase 58 U/L (13-40)
--- NOTE | 2025-04-15 09:03 | DVH ---
INDICATION: COPD TECHNIQUE: Frontal view of the chest. COMPARISON: None FINDINGS: . The heart and mediastinal contours are grossly unremarkable. There is no evidence of pleural disea se. The lungs are clear. The bony structures of the chest are intact without fracture. IMPRESSION: 1. No evidence of acute disease.
[2025-04-15] MEDS: NICOTINE 21MG/24 HR TOPICAL PATCH TD ONE (09:07)
[2025-04-15] MEDS: amLODIPine BESYLATE 5 MG TAB PO SCH (09:15)
[2025-04-15] MEDS: ACETAMINOPHEN 325 MG TAB PO PRN (09:20)
[2025-04-15] MEDS: NICOTINE 21MG/24 HR TOPICAL PATCH TD SCH (10:00)
--- NOTE | 2025-04-15 11:45 | DVHPN2 ---
Progress Note Date Seen: Apr 15, 2025 Medical Necessity Reason Pt with a Central, PICC or Fol: No Objective vital signs Vital Sign Date Time Temp Pulse Resp B/P (MAP) Pulse Ox O2 Delivery O2 Flow Rate FiO2 04/15/25 09:47 93 18 100 04/15/25 09:39 Nasal Cannula 3.0 04/15/25 09:39 32 04/15/25 09:15 154/83 04/15/25 05:00 97.8 97.8 Total Intake and Output 04/14/25 04/14/25 04/15/25 15:00 23:00 07:00 Intake Total 100 ml Balance 100 ml medications Current Medications Medications Dose Ordered Sig/Piper Route Start Time Stop Time Status Last Admin Dose Admin Nitroglycerin 0.4 mg Q5MINP PRN SL 04/14/25 11:00 Morphine Sulfate 2 mg Q30M PRN IV 04/14/25 11:00 Albuterol 2.5 mg Q4HWA NEB 04/14/25 14:00 04/15/25 09:39 2.5 MG Ipratropium [place] 0.5 mg Q4HWA NEB 04/14/25 14:00 04/15/25 09:39 0.5 MG Nicotine 1 patch DAILY TD 04/15/25 10:00 Amlodipine Besylate 10 mg DAILY PO 04/15/25 10:00 04/15/25 09:15 10 MG Hydralazine HCl 10 mg Q6HP PRN IV 04/14/25 12:15 04/14/25 20:57 10 MG Morphine Sulfate 2 mg Q4HPRN PRN IV 04/14/25 12:15 04/14/25 20:57 2 MG Acetaminophen/ Hydrocodone Bitart 1 tab Q6HPRN PRN PO 04/14/25 12:15 04/15/25 00:52 1 TAB Acetaminophen 650 mg Q6HP PRN PO 04/14/25 12:15 04/15/25 09:20 650 MG Ondansetron HCl 4 mg Q6HPRN PRN IV 04/14/25 12:15 04/15/25 00:52 4 MG Potassium Chloride/Dextrose/ Sod Cl 1,000 ml @ 100 mls/hr Q10H IV 04/14/25 12:15 04/15/25 00:31 100 MLS/HR laboratory and microbiology Laboratory Tests 04/15/25 05:45 Test 04/15/25 05:45 Range/Units Serum Glucose 137 H 74-106 mg/dL Problem List/Assessment/Plan Problem List/Assessment/Plan 04/15/25 c/o feeling "awful with pain medicines", abdomen appropriately tender, wounds clean and well approximated.labs OK Plan discussed with: Patient SUNDEEP RILEY MD Apr 15, 2025 11:45
--- NOTE | 2025-04-15 11:53 | DVHPN2 ---
Progress Note Date Seen: Apr 15, 2025 Medical Necessity Reason Pt with a Central, PICC or Fol: No Subjective Patient reports: No new complaints Review of Systems: HEENT:Normal, CVS:Normal, RESPIRATORY:Normal, GI:Normal, :Normal, MSK:Normal, NEURO:Normal Objective vital signs Vital Sign Date Time Temp Pulse Resp B/P (MAP) Pulse Ox O2 Delivery O2 Flow Rate FiO2 04/15/25 09:47 93 18 100 04/15/25 09:39 Nasal Cannula 3.0 04/15/25 09:39 32 04/15/25 09:15 154/83 04/15/25 05:00 97.8 97.8 Total Intake and Output 04/14/25 04/14/25 04/15/25 15:00 23:00 07:00 Intake Total 100 ml Balance 100 ml medications Current Medications Medications Dose Ordered Sig/Piper Route Start Time Stop Time Status Last Admin Dose Admin Nitroglycerin 0.4 mg Q5MINP PRN SL 04/14/25 11:00 Albuterol 2.5 mg Q4HWA NEB 04/14/25 14:00 04/15/25 09:39 2.5 MG Ipratropium [place] 0.5 mg Q4HWA NEB 04/14/25 14:00 04/15/25 09:39 0.5 MG Nicotine 1 patch DAILY TD 04/15/25 10:00 Amlodipine Besylate 10 mg DAILY PO 04/15/25 10:00 04/15/25 09:15 10 MG Hydralazine HCl 10 mg Q6HP PRN IV 04/14/25 12:15 04/14/25 20:57 10 MG Acetaminophen 650 mg Q6HP PRN PO 04/14/25 12:15 04/15/25 09:20 650 MG Ondansetron HCl 4 mg Q6HPRN PRN IV 04/14/25 12:15 04/15/25 00:52 4 MG Potassium Chloride/Dextrose/ Sod Cl 1,000 ml @ 100 mls/hr Q10H IV 04/14/25 12:15 04/15/25 00:31 100 MLS/HR Ketorolac Tromethamine 15 mg Q6HPRN PRN IV 04/15/25 11:45 04/20/25 11:44 UNV Examination: GENERAL:Normal, HEENT:Normal, NECK:Normal, LUNGS:Normal, CVS:Normal, ABDOMEN:Normal, MSK:Normal, SKIN:Normal, NEURO:Normal, :Normal laboratory and microbiology Laboratory Tests 04/15/25 05:45 Test 04/15/25 05:45 Range/Units Serum Glucose 137 H 74-106 mg/dL Problem List/Assessment/Plan Problem List/Assessment/Plan * Chronic obstructive pulmonary disease for which the patient will be placed on bronchodilators and a chest x-ray will be obtained. * Acute respiratory failure for which she will be placed on bronchodilators. * Tobacco abuse for which she has been advised to quit. A nicotine patch has been placed. Time spent was 11 minutes. * Hypertension for which she will be placed on amlodipine. * Status post laparoscopic cholecystectomy for gallbladder polyps. She will be placed on a clear liquid diet along with IV fluids and pain medications. advance care planning- full code- time spent 18 mins Plan discussed with: Patient My Orders My Orders Orders - IRIS DOTSON MD Procedure Category Date Status Time Clear Liq Diet DIET 04/14/25 Transmitted Lunch Albuterol Medneb PHA 04/14/25 In Process (Ventolin Medneb) 14:00 Ipratropium Medneb PHA 04/14/25 In Process (Atrovent Medneb) 14:00 Nicotine 21mg/24hr PHA 04/15/25 In Process (Nicoderm 21mg/24hr) 10:00 Amlodipine Tablet PHA 04/15/25 In Process (Norvasc Tablet) 10:00 Hydralazine Injection PHA 04/14/25 In Process (Apresoline Inject 12:15 Acetaminophen Tablet PHA 04/14/25 In Process (Tylenol Tablet) 12:15 Ondansetron Hcl PHA 04/14/25 In Process (Zofran) 12:15 D5w/Sod Chl 0.45%/Kcl PHA 04/14/25 In Process 20meq 12:15 Chest Portable XY 04/15/25 Resulted 06:00 Full Liq Diet DIET 04/15/25 Transmitted Lunch Pt Request For Service PT 04/15/25 Logged 11:50 Complete Blood Count LAB 04/16/25 Verified 06:00 Comprehensive LAB 04/16/25 Verified Metabolic Panel 06:00 Date of Service: Apr 15, 2025 Billing Provider: IRIS DOTSON MD Common Visit Codes: [id number] INP/OBS CARE(HIGH) Secondary Visit Codes: [id number] CARE PLAN 30 MINUTES IRIS DOTSON MD Apr 15, 2025 11:53
[2025-04-15] MEDS: KETOROLAC TROMETH 30 MG/ML 1ML VIAL IV PRN (20:11)
[2025-04-16] VITALS (12 sets, daily range): BP systolic 134–149; BP diastolic 73–80; PULSE 100–124; RESP 18–20; TEMP 98–98.2; O2SAT 92–99
--- NOTE | 2025-04-16 14:55 | DVHDS2 ---
Discharge Summary Date of Admission Apr 14, 2025 at 10:47 Date of Discharge: Apr 16, 2025 Labs/Diagnostic Data: Laboratory Results Test 04/15/25 05:45 04/11/25 11:45 White Blood Count 12.8 10^3/uL (4.4-10.8) Red Blood Count 4.54 10^6/uL (4.0-5.20) Hemoglobin 14.1 g/dL (12.2-16.2) Hematocrit 41.4 % (36.0-46.0) Mean Corpuscular Volume 91.1 fL (80.0-100.0) Mean Corpuscular Hemoglobin 31.1 pg (28.0-32.0) Mean Corpuscular Hemoglobin Concent 34.2 g/dL (32.0-36.0) Red Cell Distribution Width 13.6 % (11.8-14.3) Platelet Count 293 10^3/uL (140-450) Mean Platelet Volume 8.1 fL (6.9-10.8) Neutrophils (%) (Auto) 78.5 % (37.0-80.0) Lymphocytes (%) (Auto) 10.4 % (10.0-50.0) Monocytes (%) (Auto) 10.7 % (0.0-12.0) Eosinophils (%) (Auto) 0.0 % (0.0-7.0) Basophils (%) (Auto) 0.4 % (0.0-2.0) Neutrophils # (Auto) 10.0 10 ^3/uL (1.6-8.6) Lymphocytes # (Auto) 1.3 10 ^3/uL (0.4-5.4) Monocytes # (Auto) 1.4 10 ^3/uL (0-1.3) Eosinophils # (Auto) 0 10 ^3/uL (0-0.8) Basophils # (Auto) 0 10 ^3/uL (0-0.2) Nucleated Red Blood Cells 0.0 % Sodium Level 134 mmol/L (136-145) Potassium Level 4.1 mmol/L (3.5-5.1) Chloride Level 101 mmol/L (98-107) Carbon Dioxide Level 24 mmol/L (20-31) Anion Gap 9 (5-15) Blood Urea Nitrogen 9 mg/dL (9-23) Creatinine 0.59 mg/dL (0.550-1.02) Glomerular Filtration Rate Calc 99 mL/min (>90) BUN/Creatinine Ratio 15.3 (10.0-20.0) Serum Glucose 137 mg/dL (74-106) Calcium Level 9.3 mg/dL (8.7-10.4) Total Bilirubin 0.8 mg/dL (0.2-1.0) Aspartate Amino Transferase (AST) 58 U/L (13-40) Alanine Aminotransferase (ALT) 77 U/L (7-40) Alkaline Phosphatase 75 U/L (46-116) Total Protein 6.4 g/dL (5.7-8.2) Albumin 4.1 g/dL (3.2-4.8) Prothrombin Time 10.0 sec (9.3-11.8) Prothrombin Time INR 0.94 (0.9-1.15) Activated Partial Thromboplast Time 25.6 SEC (24.5-34.5) Urine Color Light-yellow (Yellow) Urine Clarity Clear (Clear) Urine pH 8.0 (5.0-9.0) Urine Specific Trail 1.014 (1.001-1.035) Urine Protein Negative (Negative) Urine Ketones Negative (Negative) Urine Blood Negative /uL (Negative) Urine Nitrite Negative (Negative) Urine Bilirubin Negative (Negative) Urine Urobilinogen Normal mg/dL (Negative) Urine Leukocyte Esterase Negative /uL (Negative) Urine RBC 3 /hpf (0 - 4) Urine Microscopic WBC < 1 /HPF (0-5) Urine Squamous Epithelial Cells Few /hpf (<5) Urine Bacteria None seen /hpf (None Seen) Urine Mucus Few (None Seen) Urine Glucose Normal mg/dL (Normal) Other Laboratory Tests 04/15/25 05:45 Brief Hx & Hospital Course: SEE DICTATED NOTE Condition at Discharge: Good Final Diagnosis/Problems List LAP ISIDRO Discharge Disposition: Home Discharge Instruct/Medications Diet: Cardiac 2g Na,low cholest Activity: No Restrictions, As Tolerated Follow Up/Referral: SCHEDULE APPT WITH DR RILEY IN 1 WK Medications: RESUME HOME MEDS SCRIPT TO PHARMACY Discharge Statement: "Patient was advised to return to the ER or call 911 if any headaches, dizziness, shortness of breath, chest pain, abdominal pain, bleeding, fevers, or worsening of medical condition. Patient was counseled about treatment plan, medications, possible side effects, patientverbalized understanding. All questions were answered to the best of my ability. This discharge took greater then 30 minutes in planning, reviewing documentation, counseling the patient, and discussing with other team members." ASSESSMENT ASSESSMENT Assessment TYRA FELIX Date of Service: Apr 16, 2025 Billing Provider: IRIS DOTSON MD Common Visit Codes: 23550-KCB/OBS DISCH DAY >30min IRIS DOTSON MD Apr 16, 2025 14:55
[2025-04-16] MEDS ORDERED: CEPH500C PO (14:56)
[2025-04-16] MEDS ORDERED: TRAM-626 PO (14:56)
--- NOTE | 2025-04-16 15:10 | DVHDS ---
DATE OF DISCHARGE: 04/16/2025 The patient is a 65-year-old lady who was admitted after she underwent laparoscopic cholecystectomy for gallbladder polyps. The patient has history of COPD and tobacco abuse. HOSPITAL COURSE: The patient was placed on bronchodilators. The patient was seen in surgery consult by Dr. Rosado. The patient's chest x-ray showed no acute disease. The patient is now improved and has had bowel activity. She will be discharged home to resume her home medications as well as to be on tramadol p.r.n. for pain and Keflex 500 mg t.i.d. for five days. She will follow up with Dr. Rosado in one week. FINAL DIAGNOSES: * COPD. * Acute respiratory failure. * Tobacco abuse. * Hypertension. * Status post laparoscopic cholecystectomy for gallbladder polyps Time spent in discharge planning and review of plan with the patient and nursing was 37 minutes. MD MUSA Jones/ASHLEY TID: [id number] RECEIPT: [id number]
== END 2025-04-16 16:25 | disposition home or self-care (01) | DRG 417 ==
LOC: SUR 07:17 → OVERFLOW 10:47 → EAST 14:30
PROVIDERS: ADMIT Internal Medicine; ATTEND Internal Medicine
PROC: 0FT44ZZ Resection of Gallbladder, Percutaneous Endoscopic Approach (ICD-10-PCS; principal; 2025-04-14 09:25)
DX: K82.4 Cholesterolosis of gallbladder (principal); J96.00 Acute respiratory failure, unspecified whether with hypoxia or hypercapnia; I10 Essential (primary) hypertension; J44.9 Chronic obstructive pulmonary disease, unspecified; F17.210 Nicotine dependence, cigarettes, uncomplicated; Z88.8 Allergy status to other drugs, medicaments and biological substances
CPT/HCPCS: 36415; 71045; 80053; 81001; 85025; 85610; 85730; 86850; 86900; 86901; 94640; 97116; 97163; 97530; G0378; J0330; J1100; J1885; J2405; J3490

== ENCOUNTER → 2025-05-23 | Outpatient (CLI) | payer MEDICARE, OTHER ==
[~2025-05-23] MED LIST changes: +CEPH500C PO; +TRAM-626 PO
[2025-05-23 11:55] LABS: Hematocrit 43.1 % (36.0-46.0); Hemoglobin 14.9 g/dL (12.2-16.2); Mean Corpuscular Hemoglobin 32.0 pg (28.0-32.0); Mean Corpuscular Volume 92.8 fL (80.0-100.0); Nucleated Red Blood Cells % 0.0 %
[2025-05-23 12:11] LABS: Alanine Aminotransferase 29 U/L (7-40); Albumin 4.4 g/dL (3.2-4.8); Alkaline Phosphatase 108 U/L (46-116); Anion Gap 7 (5-15); BUN/Creatinine Ratio 15.1 (10.0-20.0); Blood Urea Nitrogen 11 mg/dL (9-23); Calcium 10.3 mg/dL (8.7-10.4); Carbon Dioxide 27 mmol/L (20-31); Chloride 105 mmol/L (98-107); Glucose 82 mg/dL (74-106); Potassium 4.7 mmol/L (3.5-5.1); Sodium 139 mmol/L (136-145); Total Protein 6.6 g/dL (5.7-8.2); Triglycerides 45 mg/dL (< 150)
[2025-05-23 12:12] LABS: Bilirubin, Total 0.6 mg/dL (0.2-1.0)
[2025-05-23 12:23] LABS: Cholesterol 221 mg/dL (< 200); HDL Cholesterol 82 mg/dL (40-59)
== END | disposition home or self-care (01) ==
LOC: LAB 10:44
PROVIDERS: ATTEND Student in an Organized Health Care Education/Training Program
DX: I10 Essential (primary) hypertension (principal); J44.1 Chronic obstructive pulmonary disease with (acute) exacerbation
CPT/HCPCS: 36415; 80053; 80061; 82947; 83880; 84443; 85025